=== PATIENT | male | born 2005 | race Two or more races ===

== ENCOUNTER 2023-12-28 11:06 | Emergency (ER) | payer OTHER ==
[~2023-12-28] VITALS: Ht 167.6 cm; Wt 59.1 kg
[2023-12-28 11:08] VITALS: TEMP 98
[2023-12-28 13:13] VITALS: BP 122/60; PULSE 74; RESP 16
== END 2023-12-28 13:19 | disposition home or self-care (01) ==
LOC: EMS 11:06
DX: S06.0X0A Concussion without loss of consciousness, initial encounter (principal); W19.XXXA Unspecified fall, initial encounter; Y93.89 Activity, other specified; Y92.89 Other specified places as the place of occurrence of the external cause; Y99.8 Other external cause status
CPT/HCPCS: 99282; Z7502